=== PATIENT | male | born 1955 | race Caucasian/White ===

== ENCOUNTER 2017-11-06 10:17 | Day surgery (SDC) | payer MEDICARE, BC ==
[2017-11-06] MEDS ORDERED: LIDOcaine 2% 5ml jelly ONE (11:55)
[2017-11-06] MEDS ORDERED: MORP30TA PO (12:20)
[2017-11-06] MEDS ORDERED: TAMS0.4C32 PO (12:20)
[2017-11-06] MEDS ORDERED: PREG200C PO (12:20)
[2017-11-06] MEDS ORDERED: BUPR150T8 PO (12:20)
== END 2017-11-06 12:45 | disposition home or self-care (01) ==
LOC: WOUND CARE 10:17
PROVIDERS: ATTEND Surgery
DX: T81.31XA Disruption of external operation (surgical) wound, not elsewhere classified, initial encounter (principal); L97.822 Non-pressure chronic ulcer of other part of left lower leg with fat layer exposed; L97.411 Non-pressure chronic ulcer of right heel and midfoot limited to breakdown of skin; G62.9 Polyneuropathy, unspecified; W22.8XXA Striking against or struck by other objects, initial encounter; Y93.89 Activity, other specified; Y92.89 Other specified places as the place of occurrence of the external cause; Y99.8 Other external cause status
CPT/HCPCS: 11042; 17250; 99205; A6021; A6206; A6209; A6212; A6446

== ENCOUNTER 2017-11-15 10:00 | Day surgery (SDC) | payer MEDICARE, BC ==
[~2017-11-15 10:00] MED LIST: BUPR150T8 PO; MORP30TA PO; PREG200C PO; TAMS0.4C32 PO
[2017-11-15] MEDS ORDERED: LIDOcaine 2% 5ml jelly ONE (10:30)
== END 2017-11-15 11:03 | disposition home or self-care (01) ==
LOC: WOUND CARE 10:00
PROVIDERS: ATTEND Surgery
DX: T81.31XD Disruption of external operation (surgical) wound, not elsewhere classified, subsequent encounter (principal); L97.822 Non-pressure chronic ulcer of other part of left lower leg with fat layer exposed; L97.411 Non-pressure chronic ulcer of right heel and midfoot limited to breakdown of skin; G62.9 Polyneuropathy, unspecified; W22.8XXD Striking against or struck by other objects, subsequent encounter
CPT/HCPCS: 11042; 97597; A6021; A6206; A6212; A6446

== ENCOUNTER 2017-11-29 09:35 | Day surgery (SDC) | payer MEDICARE, BC ==
[2017-11-29] MEDS ORDERED: LIDOcaine 2% 5ml jelly ONE (10:29)
== END 2017-11-29 10:29 | disposition home or self-care (01) ==
LOC: WOUND CARE 09:35
PROVIDERS: ATTEND Surgery
DX: T81.31XD Disruption of external operation (surgical) wound, not elsewhere classified, subsequent encounter (principal); L97.822 Non-pressure chronic ulcer of other part of left lower leg with fat layer exposed; L97.418 Non-pressure chronic ulcer of right heel and midfoot with other specified severity; G62.9 Polyneuropathy, unspecified; J44.9 Chronic obstructive pulmonary disease, unspecified; Y83.8 Other surgical procedures as the cause of abnormal reaction of the patient, or of later complication, without mention of misadventure at the time of the procedure
CPT/HCPCS: 97597; A6021; A6206; A6222; A6446

== ENCOUNTER 2017-12-06 09:35 | Day surgery (SDC) | payer MEDICARE, BC ==
[2017-12-06] MEDS ORDERED: LIDOcaine 2% 5ml jelly ONE (10:26)
[2017-12-06] MEDS ORDERED: hydrocortisone 1% cream 28gm TP ONE (11:20)
== END 2017-12-06 11:23 | disposition home or self-care (01) ==
LOC: WOUND CARE 09:35
PROVIDERS: ATTEND Surgery
DX: T81.31XD Disruption of external operation (surgical) wound, not elsewhere classified, subsequent encounter (principal); L97.822 Non-pressure chronic ulcer of other part of left lower leg with fat layer exposed; L97.411 Non-pressure chronic ulcer of right heel and midfoot limited to breakdown of skin; G62.9 Polyneuropathy, unspecified; J44.9 Chronic obstructive pulmonary disease, unspecified; F10.10 Alcohol abuse, uncomplicated; Y83.8 Other surgical procedures as the cause of abnormal reaction of the patient, or of later complication, without mention of misadventure at the time of the procedure
CPT/HCPCS: A6209; A6222; C5271; Q4102

== ENCOUNTER 2017-12-13 09:18 | Outpatient (CLI) | payer MEDICARE, BC ==
[2017-12-13] MEDS ORDERED: LIDOcaine 2% 5ml jelly ONE (09:58)
== END 2017-12-13 10:41 | disposition home or self-care (01) ==
LOC: WOUND CARE 09:18 → EDSTATUS 09:30 → WOUND CARE 10:41
PROVIDERS: ATTEND Surgery
DX: T81.31XD Disruption of external operation (surgical) wound, not elsewhere classified, subsequent encounter (principal); L97.822 Non-pressure chronic ulcer of other part of left lower leg with fat layer exposed; L97.411 Non-pressure chronic ulcer of right heel and midfoot limited to breakdown of skin; G62.9 Polyneuropathy, unspecified; J44.9 Chronic obstructive pulmonary disease, unspecified; F10.10 Alcohol abuse, uncomplicated; Y83.8 Other surgical procedures as the cause of abnormal reaction of the patient, or of later complication, without mention of misadventure at the time of the procedure
CPT/HCPCS: 99215; A6021; A6206; A6209

== ENCOUNTER 2017-12-20 09:21 | Day surgery (SDC) | payer MEDICARE, BC | END 2017-12-20 11:19 | disposition home or self-care (01) | LOC: WOUND CARE 09:21 | PROVIDERS: ATTEND Surgery | DX: T81.31XD Disruption of external operation (surgical) wound, not elsewhere classified, subsequent encounter (principal); L97.822 Non-pressure chronic ulcer of other part of left lower leg with fat layer exposed; L97.411 Non-pressure chronic ulcer of right heel and midfoot limited to breakdown of skin; G62.9 Polyneuropathy, unspecified; J44.9 Chronic obstructive pulmonary disease, unspecified; F10.10 Alcohol abuse, uncomplicated; Y83.8 Other surgical procedures as the cause of abnormal reaction of the patient, or of later complication, without mention of misadventure at the time of the procedure | CPT/HCPCS: 17250; A6021; A6206; 97597 ==

== ENCOUNTER 2017-12-27 09:30 | Day surgery (SDC) | payer MEDICARE, BC ==
[2017-12-27] MEDS: nystatin/triamcinolone cream 15gm TP ONE (11:55)
== END 2017-12-27 12:02 | disposition home or self-care (01) ==
LOC: WOUND CARE 09:30
PROVIDERS: ATTEND Surgery
DX: T81.31XD Disruption of external operation (surgical) wound, not elsewhere classified, subsequent encounter (principal); L97.822 Non-pressure chronic ulcer of other part of left lower leg with fat layer exposed; L97.411 Non-pressure chronic ulcer of right heel and midfoot limited to breakdown of skin; G62.9 Polyneuropathy, unspecified; J44.9 Chronic obstructive pulmonary disease, unspecified; F10.10 Alcohol abuse, uncomplicated; Y83.8 Other surgical procedures as the cause of abnormal reaction of the patient, or of later complication, without mention of misadventure at the time of the procedure
CPT/HCPCS: 17250; A6021; A6206

== ENCOUNTER 2018-01-03 09:37 | Day surgery (SDC) | payer MEDICARE, BC ==
[2018-01-03] MEDS ORDERED: LIDOcaine 2% 5ml jelly ONE (10:40)
== END 2018-01-03 11:09 | disposition home or self-care (01) ==
LOC: WOUND CARE 09:37
PROVIDERS: ATTEND Surgery
DX: T81.31XD Disruption of external operation (surgical) wound, not elsewhere classified, subsequent encounter (principal); L97.822 Non-pressure chronic ulcer of other part of left lower leg with fat layer exposed; L97.411 Non-pressure chronic ulcer of right heel and midfoot limited to breakdown of skin
CPT/HCPCS: 17250; A6021; 97597

== ENCOUNTER 2018-01-16 09:27 | Day surgery (SDC) | payer MEDICARE, BC | END 2018-01-16 10:44 | disposition home or self-care (01) | LOC: WOUND CARE 09:27 | PROVIDERS: ATTEND Surgery | DX: T81.31XD Disruption of external operation (surgical) wound, not elsewhere classified, subsequent encounter (principal); L97.822 Non-pressure chronic ulcer of other part of left lower leg with fat layer exposed; L97.411 Non-pressure chronic ulcer of right heel and midfoot limited to breakdown of skin; G62.9 Polyneuropathy, unspecified; J44.9 Chronic obstructive pulmonary disease, unspecified; F10.10 Alcohol abuse, uncomplicated; Y83.8 Other surgical procedures as the cause of abnormal reaction of the patient, or of later complication, without mention of misadventure at the time of the procedure | CPT/HCPCS: 97597; A6021; A6206; A6212 ==

== ENCOUNTER 2018-01-30 09:27 | Day surgery (SDC) | payer MEDICARE, BC ==
[2018-01-30] MEDS ORDERED: LIDOcaine/PRILOcaine 5gm cream TP ONE (10:18)
== END 2018-01-30 11:15 | disposition home or self-care (01) ==
LOC: WOUND CARE 09:27
PROVIDERS: ATTEND Surgery
DX: T81.31XD Disruption of external operation (surgical) wound, not elsewhere classified, subsequent encounter (principal); L97.822 Non-pressure chronic ulcer of other part of left lower leg with fat layer exposed; L97.411 Non-pressure chronic ulcer of right heel and midfoot limited to breakdown of skin; G62.9 Polyneuropathy, unspecified; J44.9 Chronic obstructive pulmonary disease, unspecified; F10.10 Alcohol abuse, uncomplicated; Y83.8 Other surgical procedures as the cause of abnormal reaction of the patient, or of later complication, without mention of misadventure at the time of the procedure
CPT/HCPCS: 17250; A6021; A6206; A6212

== ENCOUNTER 2018-02-13 09:21 | Outpatient (CLI) | payer MEDICARE, BC | END 2018-02-13 10:03 | disposition home or self-care (01) | LOC: WOUND CARE 09:21 → EDSTATUS 09:30 → WOUND CARE 10:03 | PROVIDERS: ATTEND Surgery | DX: T81.31XD Disruption of external operation (surgical) wound, not elsewhere classified, subsequent encounter (principal); L97.222 Non-pressure chronic ulcer of left calf with fat layer exposed; G62.9 Polyneuropathy, unspecified; J44.9 Chronic obstructive pulmonary disease, unspecified; F10.10 Alcohol abuse, uncomplicated; Y83.8 Other surgical procedures as the cause of abnormal reaction of the patient, or of later complication, without mention of misadventure at the time of the procedure | CPT/HCPCS: 99214 ==

== ENCOUNTER 2020-08-28 09:47 | Day surgery (SDC) | payer MEDICARE, BC ==
[2020-08-21 16:05] LABS: CLARITY,URINE CLEAR (Clear); COLOR,URINE YELLOW (Yellow); GLUCOSE, URINE NEGATIVE (Neg); KETONES,URINE NEGATIVE (Neg); LEUKOCYTE ESTERASE ,URINE NEGATIVE (Neg); NITRITES, URINE NEGATIVE (Neg); OCCULT BLOOD,URINE TRACE-INTACT (Neg); PROTEIN,URINE NEGATIVE (Neg); UROBILINOGEN,URINE 0.2 E.U/dL (0.2-1.0)
[2020-08-21 16:05] LABS: BASOPHILS % (AUTO) 0.3 % (0-1); EOSINOPHILS # (AUTO) 0.1 X10'3 (0-0.9); EOSINOPHILS % (AUTO) 1.2 % (0-6); LYMPHOCYTES # (AUTO) 1.3 X10'3 (1.1-4.8); LYMPHOCYTES % (AUTO) 13.3 % (21-51); MEAN CORPUSCULAR HEMOGLOBIN 30.9 PG (27.0-31.0); MEAN CORPUSCULAR HGB CONC 33.7 g/dL (33.0-36.5); MEAN CORPUSCULAR VOLUME 91.8 FL (78-98); MEAN PLATELET VOLUME 8.7 FL (7.4-10.4); MONOCYTES # (AUTO) 0.8 X10'3 (0-0.9); MONOCYTES % (AUTO) 7.5 % (2-12); NEUTROPHILS # (AUTO) 7.8 X10'3 (1.8-7.7); NEUTROPHILS % (AUTO) 77.7 % (42-75); PRE OP HEMATOCRIT 49.1 % (42.0-52.0); PRE OP HEMOGLOBIN 16.5 g/dL (14.0-17.9); PRE OP PLATELET COUNT 256 X10'3 (140-440); RED BLOOD COUNT 5.35 X10'6 (4.70-6.10); RED CELL DISTRIBUTION WIDTH 13.6 % (11.5-14.5)
[2020-08-21 16:10] LABS: UA COLLECTION TYPE CLN CATCH MIDSTREAM
[2020-08-21 16:14] LABS: ALBUMIN 3.7 G/DL (3.4-5.0); ALBUMIN/GLOBULIN RATIO 0.9 (1.1-1.5); ALKALINE PHOSPHATASE 106 IU/L (46-116); BLOOD UREA NITROGEN 8 MG/DL (7-18); BUN/CREATININE RATIO 8.8 (5.4-32.0); CALCIUM 9.2 MG/DL (8.5-10.1); CHLORIDE 104 MMOL/L (99-107); CREATININE 0.91 MG/DL (0.60-1.10); PRE OP ALT 18 U/L (30-65); PRE OP ANION GAP 10 (8-16); PRE OP AST 14 U/L (10-37); PRE OP BILIRUB, TOTAL 0.4 MG/DL (0.0-1.0); PRE OP GLUCOSE 97 MG/DL (70-104); PRE OP POTASSIUM 4.1 MMOL/L (3.4-5.1); PRE OP SODIUM 141 MMOL/L (135-145); TOTAL CARBON DIOXIDE 27.2 MMOL/L (24-32); TOTAL PROTEIN 7.7 G/DL (6.4-8.2); eGFR 84 ML/MIN
[2020-08-21 16:16] LABS: BACTERIA,URINE NONE SEEN /HPF (Neg); MUCUS STRANDS NONE SEEN /LPF (Neg); RBC,URINE 0-2 /HPF (0-2); SQUAMOUS EPITHELIAL CELL,UR NONE SEEN /LPF (FEW); WBC,URINE 0-4 /HPF (0-4)
[~2020-08-28] VITALS: Ht 177.8 cm; Wt 77.1 kg
[~2020-08-28 09:47] MED LIST changes: +ACET-1 PO; +ALBU8.5H8 INH; -BUPR150T8 PO; +BUSP10TA3 PO; +FLUT1BLS4 INH; -MORP30TA PO; -PREG200C PO; +PREG300C19 PO; -TAMS0.4C32 PO; +albuterol 2.5 MG/3 ML nebule NEB ONE; +cefazolin/dext.iso 2gm/100ml 100 ML IV ONE; +famotidine 20mg tablet PO ONE; +ringers solution, lacted 1,000 ML IV SCH
--- NOTE | 2020-08-28 11:11 | NUR ---
PATIENT HAS PURULENT OPEN WOUND ON LEFT FOREARM, SURGEON NOTIFIED AND CANCELLED THE SURGERY. PIV WAS PLACED ON LEFT FOREARM 20G, AND D/C'D WITH INTACT CATHETER. PATIENT WAS EDUCATED ON WOUND CARE, VERBALIZED UNDERSTANDING. DISCHARGED IN STABLE CONDITION, TRANSFERRED IN WHEELCHAIR TO PRIVATE VEHICLE WITH NO INCIDENTS.
== END 2020-08-28 11:15 | disposition home or self-care (01) ==
LOC: PAS 09:47
PROVIDERS: ATTEND Podiatrist Foot & Ankle Surgery
DX: T84.84XA Pain due to internal orthopedic prosthetic devices, implants and grafts, initial encounter (principal); Z53.8 Procedure and treatment not carried out for other reasons; S51.802A Unspecified open wound of left forearm, initial encounter; G57.81 Other specified mononeuropathies of right lower limb; M25.471 Effusion, right ankle; M19.071 Primary osteoarthritis, right ankle and foot; J44.9 Chronic obstructive pulmonary disease, unspecified; F41.9 Anxiety disorder, unspecified; Z72.89 Other problems related to lifestyle; F17.290 Nicotine dependence, other tobacco product, uncomplicated; Z79.899 Other long term (current) drug therapy; Z98.890 Other specified postprocedural states; Z79.82 Long term (current) use of aspirin; Y83.8 Other surgical procedures as the cause of abnormal reaction of the patient, or of later complication, without mention of misadventure at the time of the procedure; Y92.89 Other specified places as the place of occurrence of the external cause; X58.XXXA Exposure to other specified factors, initial encounter; Y93.89 Activity, other specified; Y99.8 Other external cause status
CPT/HCPCS: 36415; 80053; 81001; 85025; 93005; J7120

== ENCOUNTER 2020-10-16 09:05 | Day surgery (SDC) | payer MEDICARE, BC ==
[2020-10-09 11:29] LABS: CLARITY,URINE CLEAR (Clear); COLOR,URINE YELLOW (Yellow); GLUCOSE, URINE NEGATIVE (Neg); KETONES,URINE NEGATIVE (Neg); LEUKOCYTE ESTERASE ,URINE NEGATIVE (Neg); NITRITES, URINE NEGATIVE (Neg); OCCULT BLOOD,URINE TRACE-INTACT (Neg); PROTEIN,URINE NEGATIVE (Neg); UA COLLECTION TYPE CLN CATCH MIDSTREAM; UROBILINOGEN,URINE 0.2 E.U/dL (0.2-1.0)
[2020-10-09 11:36] LABS: BASOPHILS # (AUTO) 0.1 X10'3 (0-0.2); BASOPHILS % (AUTO) 0.7 % (0-1); EOSINOPHILS # (AUTO) 0.1 X10'3 (0-0.9); EOSINOPHILS % (AUTO) 1.1 % (0-6); LYMPHOCYTES # (AUTO) 1.7 X10'3 (1.1-4.8); LYMPHOCYTES % (AUTO) 22.3 % (21-51); MEAN CORPUSCULAR HEMOGLOBIN 31.7 PG (27.0-31.0); MEAN CORPUSCULAR HGB CONC 33.9 g/dL (33.0-36.5); MEAN CORPUSCULAR VOLUME 93.5 FL (78-98); MEAN PLATELET VOLUME 8.7 FL (7.4-10.4); MONOCYTES # (AUTO) 0.7 X10'3 (0-0.9); MONOCYTES % (AUTO) 9.5 % (2-12); NEUTROPHILS # (AUTO) 5.1 X10'3 (1.8-7.7); NEUTROPHILS % (AUTO) 66.4 % (42-75); PRE OP HEMATOCRIT 49.6 % (42.0-52.0); PRE OP HEMOGLOBIN 16.8 g/dL (14.0-17.9); PRE OP PLATELET COUNT 271 X10'3 (140-440); RED BLOOD COUNT 5.31 X10'6 (4.70-6.10); RED CELL DISTRIBUTION WIDTH 13.3 % (11.5-14.5)
[2020-10-09 11:37] LABS: BACTERIA,URINE NONE SEEN /HPF (Neg); RBC,URINE 0-2 /HPF (0-2); WBC,URINE 0-4 /HPF (0-4)
[2020-10-09 11:39] LABS: SQUAMOUS EPITHELIAL CELL,UR NONE SEEN /LPF (FEW)
[2020-10-09 11:45] LABS: ALBUMIN 3.6 G/DL (3.4-5.0); ALBUMIN/GLOBULIN RATIO 0.9 (1.1-1.5); ALKALINE PHOSPHATASE 115 IU/L (46-116); BLOOD UREA NITROGEN 11 MG/DL (7-18); BUN/CREATININE RATIO 11.5 (5.4-32.0); CALCIUM 9.3 MG/DL (8.5-10.1); CHLORIDE 104 MMOL/L (99-107); CREATININE 0.96 MG/DL (0.60-1.10); PRE OP ALT 17 U/L (30-65); PRE OP ANION GAP 8 (8-16); PRE OP AST 17 U/L (10-37); PRE OP BILIRUB, TOTAL 0.6 MG/DL (0.0-1.0); PRE OP GLUCOSE 103 MG/DL (70-104); PRE OP POTASSIUM 4.5 MMOL/L (3.4-5.1); PRE OP SODIUM 143 MMOL/L (135-145); TOTAL CARBON DIOXIDE 30.8 MMOL/L (24-32); TOTAL PROTEIN 7.7 G/DL (6.4-8.2); eGFR 79 ML/MIN
[2020-10-16] VITALS (10 sets, daily range): BP systolic 106–141; BP diastolic 65–84
[~2020-10-16] VITALS: Ht 180.3 cm; Wt 75.4 kg
[~2020-10-16 09:05] MED LIST changes: +BUPR150T16 PO; +VANCOMYCIN 1,500MG inj. 1,500 MG in normal saline 500ml IV soln 300 ML IV ONE; +bacitracin 15gm ointment TP ONE; -cefazolin/dext.iso 2gm/100ml 100 ML IV ONE; +cefazolin/dext.iso 2gm/50ml 50 ML IV ONE
[2020-10-16] MEDS ORDERED: cloNIDine hcl/PF 100mcg/ml inj ONE (09:36)
[2020-10-16] MEDS ORDERED: bacitracin 15gm ointment TP ONE (11:17)
[2020-10-16] MEDS ORDERED: BUPIVAcaine/PF 2.5 mg/ml (0.25%) 30ml vial ONE (11:17)
[2020-10-16] MEDS ORDERED: ondansetron/PF 4mg/2ml inj IV PRN (12:45)
[2020-10-16] MEDS ORDERED: morphine 2 MG/ML inj. syringe IV PRN (12:45)
[2020-10-16] MEDS ORDERED: meperidine/PF 25mg/ml syringe IV PRN ×3 (12:45)
[2020-10-16] MEDS ORDERED: morphine 4 MG/ML inj SYRINge IV PRN (12:45)
[2020-10-16] MEDS ORDERED: proCHLORperazine 10 MG/2 ml inj IV PRN (12:45)
[2020-10-16] MEDS ORDERED: ringers solution, lacted 1,000 ML IV SCH (12:45)
[2020-10-16] MEDS ORDERED: propofol inj 20 ML IV ONE (12:54)
[2020-10-16] MEDS ORDERED: sevoflurane 250ml liquid IH ONE (12:54)
[2020-10-16] MEDS ORDERED: fentaNYL/PF 50MCG/1 ML 2ML syringe ONE (12:54)
[2020-10-16] MEDS ORDERED: midazolam 1 mg/ML 2ml injection ONE (12:54)
[2020-10-16] MEDS ORDERED: ROPIVAcaine 0.5% (5mg/ml) 30ml vial ONE (12:55)
--- NOTE | 2020-10-16 16:40 | NUR ---
Received from OR via [facility], accompanied by Anesthesiologist DR LAYTON and report given by Anesthesiologist. PT AWAKE, DENIES PAIN, RIGHT FOOT/ANKLE TO MID CALF W/ABNER WRAP COVERING SPLINT CDI. TOES PWD, PLANT ANATOMIST 1-2 SECONDS. Addendum: 10/16/20 at 1720 by Radha Garcia RN Amended: Links added.
--- NOTE | 2020-10-16 18:10 | NUR ---
PT ABLE TO PIVOT TO W/C SAFELY, D/C INSTRUCTIONS GIVEN AND GONE OVER W/PT AND PTS S/O WHO VERBALIZED UNDERSTANDING, PT D/CD TO PRIVATE VEHICLE VIA W/C W/O INCIDENT. Addendum: 10/16/20 at 1816 by Radha Garcia RN Amended: Links added.
== END 2020-10-16 18:10 | disposition home or self-care (01) ==
LOC: PAS 09:05
PROVIDERS: ATTEND Podiatrist Foot & Ankle Surgery
DX: T84.84XA Pain due to internal orthopedic prosthetic devices, implants and grafts, initial encounter (principal); M19.079 Primary osteoarthritis, unspecified ankle and foot; Y83.8 Other surgical procedures as the cause of abnormal reaction of the patient, or of later complication, without mention of misadventure at the time of the procedure; Y92.89 Other specified places as the place of occurrence of the external cause; Z72.0 Tobacco use; M79.671 Pain in right foot; M25.471 Effusion, right ankle; G57.80 Other specified mononeuropathies of unspecified lower limb
CPT/HCPCS: 20680; 28725; 36415; 64445; 64782; 73650; 76000; 77002; 80053; 81001; 82948; 85025; 94640; A6223; C1713; J0735; J2250; J2704; J3010; J3370; J3490; J7040; A4215; A4618; A6449; A7000; J2795; J7120

== ENCOUNTER 2020-12-11 06:00 | Day surgery (SDC) | payer MEDICARE, BC ==
[2020-12-07 10:27] LABS: BASOPHILS % (AUTO) 0.4 % (0-1); EOSINOPHILS # (AUTO) 0.1 X10'3 (0-0.9); EOSINOPHILS % (AUTO) 1.7 % (0-6); LYMPHOCYTES # (AUTO) 1.2 X10'3 (1.1-4.8); LYMPHOCYTES % (AUTO) 14.8 % (21-51); MEAN CORPUSCULAR HGB CONC 33.2 g/dL (33.0-36.5); MEAN CORPUSCULAR VOLUME 93.3 FL (78-98); MEAN PLATELET VOLUME 8.6 FL (7.4-10.4); MONOCYTES # (AUTO) 0.7 X10'3 (0-0.9); MONOCYTES % (AUTO) 8.2 % (2-12); NEUTROPHILS # (AUTO) 6.1 X10'3 (1.8-7.7); NEUTROPHILS % (AUTO) 74.9 % (42-75); PRE OP HEMATOCRIT 47.1 % (42.0-52.0); PRE OP HEMOGLOBIN 15.6 g/dL (14.0-17.9); PRE OP PLATELET COUNT 259 X10'3 (140-440); RED BLOOD COUNT 5.05 X10'6 (4.70-6.10); RED CELL DISTRIBUTION WIDTH 13.8 % (11.5-14.5)
[2020-12-07 10:37] LABS: ALBUMIN 3.2 G/DL (3.4-5.0); ALBUMIN/GLOBULIN RATIO 0.8 (1.1-1.5); ALKALINE PHOSPHATASE 81 IU/L (46-116); BLOOD UREA NITROGEN 11 MG/DL (7-18); BUN/CREATININE RATIO 9.8 (5.4-32.0); C-REACTIVE PROTEIN 0.19 MG/DL (0.0-0.5); CALCIUM 8.9 MG/DL (8.5-10.1); CHLORIDE 102 MMOL/L (99-107); CREATININE 1.12 MG/DL (0.60-1.10); PRE OP ALT 18 U/L (30-65); PRE OP ANION GAP 9 (8-16); PRE OP AST 15 U/L (10-37); PRE OP BILIRUB, TOTAL 0.3 MG/DL (0.0-1.0); PRE OP GLUCOSE 108 MG/DL (70-104); PRE OP POTASSIUM 3.7 MMOL/L (3.4-5.1); PRE OP SODIUM 137 MMOL/L (135-145); TOTAL CARBON DIOXIDE 26.1 MMOL/L (24-32); TOTAL PROTEIN 7.3 G/DL (6.4-8.2); eGFR 66 ML/MIN
[~2020-12-11] VITALS: Ht 182.9 cm; Wt 73.7 kg
[2020-12-11] VITALS (8 sets, daily range): BP systolic 100–121; BP diastolic 58–75
[~2020-12-11 06:00] MED LIST changes: -ACET-1 PO; +ALBU8.5H17 INH; -ALBU8.5H8 INH; -BUSP10TA3 PO; +OXYC1TAB17 PO; +SULF1TAB45 PO; -VANCOMYCIN 1,500MG inj. 1,500 MG in normal saline 500ml IV soln 300 ML IV ONE; -bacitracin 15gm ointment TP ONE; +cefazolin/dext.iso 2gm/100ml IV ONE; -cefazolin/dext.iso 2gm/50ml 50 ML IV ONE
[2020-12-11] MEDS ORDERED: bacitracin 15gm ointment TP ONE (06:51)
[2020-12-11] MEDS ORDERED: BUPIVAcaine/PF 2.5mg/ml (0.25%) 10ml vial ONE (06:51)
[2020-12-11] MEDS ORDERED: fentaNYL/PF 50MCG/1 ML 2ML syringe ONE (07:23)
[2020-12-11] MEDS ORDERED: midazolam 1 mg/ML 2ml injection ONE (07:25)
[2020-12-11] MEDS ORDERED: sevoflurane 250ml liquid IH ONE (07:25)
[2020-12-11] MEDS ORDERED: LIDOcaine 2% (20mg/ml) 5ml vial ONE (07:38)
[2020-12-11] MEDS ORDERED: ondansetron/PF 4mg/2ml inj ONE (07:38)
[2020-12-11] MEDS ORDERED: propofol inj 20 ML IV ONE (07:38)
[2020-12-11] MEDS ORDERED: dexamethasone sod phosphate 4mg/ml inj. ONE (07:38)
[2020-12-11] MEDS ORDERED: ringers solution, lacted 1,000 ML IV SCH (07:50)
[2020-12-11] MEDS ORDERED: morphine 2 MG/ML inj. syringe IV PRN (07:50)
[2020-12-11] MEDS ORDERED: hydrALAZINE 20mg/ml inj. IV PRN (07:50)
[2020-12-11] MEDS ORDERED: morphine 4 MG/ML inj SYRINge IV PRN (07:50)
[2020-12-11] MEDS ORDERED: enalaprilat dihydrate 2.5mg/2ml vial IV PRN (07:50)
[2020-12-11] MEDS ORDERED: ondansetron/PF 4mg/2ml inj IV PRN (07:50)
[2020-12-11] MEDS ORDERED: meperidine/PF 25mg/ml syringe IV PRN ×2 (07:50)
--- NOTE | 2020-12-11 08:16 | NUR ---
Received from OR via [facility] , accompanied by Anesthesiologist SHEELA and report given by Anesthesiolgist. PATIENT WITH 20G PIV IN LEFT UE RUNNING LR AT 100. 10L MASK ON WITH 100% SATURATIONS. VSS. RIGHT LE IN ABNER BANDAGE THAT IS CDI. + CAP REFILL TO TOES. Addendum: 12/11/20 at 1196 by Toni Shah RN, RN Amended: Links added.
--- NOTE | 2020-12-11 09:16 | NUR ---
ALL DISCHARGE CRITERIA HAS BEEN MET. VSS, PAIN AT A TOLERABLE LEVEL, VOIDING AND ABLE TO SAFELY AMBULATE AND TRANSFER SELF. IV TAKEN OUT WITHOUT ANY COMPLICATIONS. ALL DISCHARGE INSTRUCTIONS COVERED WITH PATIENT AND ALL QUESTIONS ANSWERED. PATIENT TAKEN OUT VIA WHEELCHAIR TO PERSONAL VEHICLE WHERE FAMILY/FRIEND DROVE PATIENT HOME. GIVEN EXPLICIT INSTRUCTIONS TO TAKE DRESSINGS AND CANNISTER TO FIRST APPOINTMENT TO WOUND CARE. FOLLOW UP CALL WITH REINFORCE THIS. Addendum: 12/11/20 at 2308 by Toni Shah RN, RN Amended: Links added.
== END 2020-12-11 09:16 | disposition home or self-care (01) ==
LOC: PAS 06:00
PROVIDERS: ATTEND Podiatrist Foot & Ankle Surgery
DX: T81.89XA Other complications of procedures, not elsewhere classified, initial encounter (principal); J44.9 Chronic obstructive pulmonary disease, unspecified; F41.9 Anxiety disorder, unspecified; I25.10 Atherosclerotic heart disease of native coronary artery without angina pectoris; F32.9 Major depressive disorder, single episode, unspecified; F17.210 Nicotine dependence, cigarettes, uncomplicated; Z98.890 Other specified postprocedural states; Z79.899 Other long term (current) drug therapy; Z79.82 Long term (current) use of aspirin; Z72.89 Other problems related to lifestyle; Y83.8 Other surgical procedures as the cause of abnormal reaction of the patient, or of later complication, without mention of misadventure at the time of the procedure; Y92.89 Other specified places as the place of occurrence of the external cause
CPT/HCPCS: 11044; 36415; 80053; 82948; 85025; 85651; 86140; 87070; 87075; 87077; 87186; 97605; J1100; J2001; J2250; J2405; J2704; J3010; J3490; Z7506; Z7512; A4618; A6449; A6550; A7000; J7120

== ENCOUNTER 2021-11-19 05:37 | Day surgery (SDC) | payer MEDICARE, BC ==
[2021-11-12 14:36] LABS: BASOPHILS % (AUTO) 0.5 % (0-1); EOSINOPHILS # (AUTO) 0.1 X10'3 (0-0.9); EOSINOPHILS % (AUTO) 0.7 % (0-6); LYMPHOCYTES # (AUTO) 1.5 X10'3 (1.1-4.8); LYMPHOCYTES % (AUTO) 15.6 % (21-51); MEAN CORPUSCULAR HEMOGLOBIN 29.3 PG (27.0-31.0); MEAN CORPUSCULAR HGB CONC 33.3 g/dL (33.0-36.5); MEAN CORPUSCULAR VOLUME 88.1 FL (78-98); MEAN PLATELET VOLUME 8.8 FL (7.4-10.4); MONOCYTES # (AUTO) 0.8 X10'3 (0-0.9); MONOCYTES % (AUTO) 8.4 % (2-12); NEUTROPHILS # (AUTO) 7.4 X10'3 (1.8-7.7); NEUTROPHILS % (AUTO) 74.8 % (42-75); PRE OP HEMATOCRIT 45.7 % (42.0-52.0); PRE OP HEMOGLOBIN 15.2 g/dL (14.0-17.9); PRE OP PLATELET COUNT 335 X10'3 (140-440); RED BLOOD COUNT 5.19 X10'6 (4.70-6.10); RED CELL DISTRIBUTION WIDTH 13.6 % (11.5-14.5)
[2021-11-12 14:41] LABS: CLARITY,URINE CLEAR (Clear); COLOR,URINE YELLOW (Yellow); GLUCOSE, URINE NEGATIVE (Neg); KETONES,URINE NEGATIVE (Neg); LEUKOCYTE ESTERASE ,URINE NEGATIVE (Neg); NITRITES, URINE NEGATIVE (Neg); OCCULT BLOOD,URINE NEGATIVE (Neg); PROTEIN,URINE NEGATIVE (Neg)
[2021-11-12 14:45] LABS: UA COLLECTION TYPE CLN CATCH MIDSTREAM
[2021-11-12 14:52] LABS: ALBUMIN 3.2 G/DL (3.4-5.0); ALBUMIN/GLOBULIN RATIO 0.8 (1.1-1.5); ALKALINE PHOSPHATASE 116 IU/L (46-116); BLOOD UREA NITROGEN 8 MG/DL (7-18); BUN/CREATININE RATIO 9.1 (5.4-32.0); CALCIUM 8.9 MG/DL (8.5-10.1); CHLORIDE 104 MMOL/L (99-107); CREATININE 0.88 MG/DL (0.60-1.10); PRE OP ALT 11 U/L (30-65); PRE OP ANION GAP 9 (8-16); PRE OP AST 14 U/L (10-37); PRE OP BILIRUB, TOTAL 0.4 MG/DL (0.0-1.0); PRE OP GLUCOSE 104 MG/DL (70-104); PRE OP SODIUM 142 MMOL/L (135-145); TOTAL PROTEIN 7.4 G/DL (6.4-8.2); eGFR 87 ML/MIN
[~2021-11-19] VITALS: Ht 180.3 cm; Wt 77.1 kg
[2021-11-19] VITALS (9 sets, daily range): BP systolic 99–132; BP diastolic 62–72
[~2021-11-19 05:37] MED LIST changes: +ACET-1 PO; -ALBU8.5H17 INH; +BETA15CR4 TOP; -BUPR150T16 PO; +BUSP10TA3 PO; +CALC-97 PO; -FLUT1BLS4 INH; +FLUT1BLS4 PO; -OXYC1TAB17 PO; -SULF1TAB45 PO; +ceFAZolin inj. 2,000 MG in dextrose 5%-water 100 ML IV ONE; -cefazolin/dext.iso 2gm/100ml IV ONE
[2021-11-19] MEDS ORDERED: bacitracin 15gm ointment TP ONE (06:38)
[2021-11-19] MEDS ORDERED: BUPIVAcaine 0.5% inj/PF 30 ML ONE (06:38)
[2021-11-19] MEDS ORDERED: LIDOcaine 1%/PF 5ML 10 MG/ML VIAL ONE (07:09)
[2021-11-19] MEDS ORDERED: fentaNYL/PF 50MCG/1 ML 2ML syringe ONE (07:09)
[2021-11-19] MEDS ORDERED: propofol inj 20 ML IV ONE (07:09)
[2021-11-19] MEDS ORDERED: midazolam 1 mg/ML 2ml injection ONE (07:09)
[2021-11-19] MEDS ORDERED: ondansetron/PF 4mg/2ml inj ONE (07:09)
[2021-11-19] MEDS ORDERED: desflurane 240ml liquid inh. IH ONE (07:11)
[2021-11-19] MEDS ORDERED: labetalol 20mg/4ml (5mg/ml) syringe IV PRN (07:15)
[2021-11-19] MEDS ORDERED: fentaNYL/PF 50MCG/1 ML 2ML syringe IV PRN ×2 (07:15)
[2021-11-19] MEDS ORDERED: hydrALAZINE 20mg/ml inj. IV PRN (07:15)
[2021-11-19] MEDS ORDERED: ondansetron/PF 4mg/2ml inj IV PRN (07:15)
[2021-11-19] MEDS ORDERED: morphine 4 MG/ML inj SYRINge IV PRN (07:15)
[2021-11-19] MEDS ORDERED: morphine 2 MG/ML inj. syringe IV PRN (07:15)
[2021-11-19] MEDS ORDERED: ringers solution, lacted 1,000 ML IV SCH (07:15)
[2021-11-19] MEDS ORDERED: BUPIVAcaine 0.5% inj/PF 30 ml vial IJ ONE (07:50)
--- NOTE | 2021-11-19 08:04 | NUR ---
Received from OR via , accompanied by Anesthesiologist and report given by Anesthesiolgist. PT PRESENTS WITH 20G LEFT FOREARM, RIGHT FOOT DRESSING CDI, VSS. ICA JONATHON PLACES ON RIGHT FOOT. Addendum: 11/19/21 at 0814 by Mariposa Shah RN, RN Amended: Links added.
[2021-11-19] MEDS ORDERED: acetaminophen w/codeine (30MG) #3 tablet PO ONE (08:25)
--- NOTE | 2021-11-19 09:14 | NUR ---
PT HAS MET ALL DC CRITERIA. IV D'CD WITH CANLA INTACT. DC INSTRUCTIONS REVIEWED WITH PT WHO VERBALIZED UNDERSTANDING. PT GIVEN ICE PACK AND DC INSTRUCTIONS. PT WHEELED OUT IN A WHEELCHAIR TO [facility] PRIVATE VEHICLE WAS WAITING TO TAKE PT HOME.
== END 2021-11-19 09:14 | disposition home or self-care (01) ==
LOC: PAS 05:37
PROVIDERS: ATTEND Podiatrist Foot & Ankle Surgery
DX: T84.84XA Pain due to internal orthopedic prosthetic devices, implants and grafts, initial encounter (principal); M86.8X7 Other osteomyelitis, ankle and foot; M89.8X7 Other specified disorders of bone, ankle and foot; M19.071 Primary osteoarthritis, right ankle and foot; F17.290 Nicotine dependence, other tobacco product, uncomplicated; J44.9 Chronic obstructive pulmonary disease, unspecified; F41.9 Anxiety disorder, unspecified; Z86.73 Personal history of transient ischemic attack (TIA), and cerebral infarction without residual deficits; Z98.890 Other specified postprocedural states; Z72.89 Other problems related to lifestyle; Z79.899 Other long term (current) drug therapy; Y83.8 Other surgical procedures as the cause of abnormal reaction of the patient, or of later complication, without mention of misadventure at the time of the procedure; Y92.89 Other specified places as the place of occurrence of the external cause
CPT/HCPCS: 20240; 20680; 36415; 73620; 76000; 80053; 81003; 82948; 85025; 87070; 87075; 93005; A6223; C1713; J0690; J2250; J2405; J2704; J3010; J3490; J7030; J7060; J7120; S0020; Z7506; Z7512; 88300; 88305; 88311; A4215; A4618; A6449; A7000